=== PATIENT | female | born 1970 | race Caucasian/White ===

== ENCOUNTER → 2021-10-13 | Outpatient (CLI) | payer OTHER ==
[~2021-10-13] MED LIST: COLACE 100MG C100 MG PO
== END ==
LOC: US 07-19 10:30
DX: M25.561 Pain in right knee (principal); M25.562 Pain in left knee; K76.0 Fatty (change of) liver, not elsewhere classified; M17.0 Bilateral primary osteoarthritis of knee
CPT/HCPCS: 73562; 76705